=== PATIENT | female | born 1980 | race Caucasian/White ===

== ENCOUNTER 2019-07-31 02:00 | Emergency (ER) | payer OTHER ==
[2019-07-31] MEDS ORDERED: ONDANSETRON HCL INJ/PF 4 MG/2 ML SDV IV ONE (02:57)
[2019-07-31] MEDS ORDERED: DICYCLOMINE HCL INJ 20 MG/2 ML AMPULE IM ONE (02:57)
[2019-07-31] MEDS ORDERED: NORMAL SALINE 1000 ML 1,000 ML IV ONE (02:57)
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
[2019-07-31 04:12] LABS: APPEARANCE,URINE CLEAR; BILIRUBIN,URINE NEGATIVE (NEGATIVE); COLOR,URINE YELLOW; GLUCOSE, URINE NEGATIVE (NEGATIVE); KETONES,URINE NEGATIVE (NEGATIVE); LEUKOCYTE ESTERASE,URINE NEGATIVE (NEGATIVE); NITRITE,URINE NEGATIVE (NEGATIVE); PROTEIN,URINE NEGATIVE (NEGATIVE); URINE SPECIFIC GRAVITY 1.023; UROBILINOGEN,URINE NEGATIVE mg/dL (<2.0)
[2019-07-31 04:13] LABS: ABSOLUTE BASOPHILS # (AUTO) 0.1 10^3/uL (0.0-0.2); ABSOLUTE EOSINOPHILS # (AUTO) 0.1 10^3/uL (0.0-0.6); ABSOLUTE LYMPHOCYTES (AUTO) 1.6 10^3/uL (0.5-4.7); ABSOLUTE MONOCYTES (AUTO) 0.3 10^3/uL (0.1-1.4); ABSOLUTE NEUT (AUTO) 5.6 10^3/uL (1.7-8.2); BASOPHILS % (AUTO) 0.8 % (0-2); EOSINOPHILS % (AUTO) 1.2 % (0-6); HEMATOCRIT 39.7 % (36.0-47.0); HEMOGLOBIN 13.4 g/dL (12.0-15.5); LYMPHOCYTES % (AUTO) 20.5 % (13-45); MEAN CORPUSCULAR HEMOGLOBIN 28.7 pg (27.0-33.4); MEAN CORPUSCULAR HGB CONC 33.6 g/dL (32.0-36.0); MEAN CORPUSCULAR VOLUME 85 fl (80-97); MONOCYTES % (AUTO) 4.3 % (3-13); PLATELET COUNT 164 10^3/uL (150-450); RED BLOOD COUNT 4.65 10^6/uL (3.72-5.28); RED CELL DISTRIBUTION WIDTH 14.5 % (11.5-14.0); SEGMENTED NEUTROPHILS % (AUTO) 73.2 % (42-78); TOTAL CELLS COUNTED % (AUTO) 100 %; WHITE BLOOD COUNT 7.6 10^3/uL (4.0-10.5)
[2019-07-31 04:27] LABS: ALBUMIN 5.1 g/dL (3.5-5.0); ALKALINE PHOSPHATASE 129 U/L (38-126); ANION GAP 13 (5-19); ASPARTATE AMINO TRANSFERASE 22 U/L (14-36); BILIRUBIN,DIRECT 0.3 mg/dL (0.0-0.4); BILIRUBIN,TOTAL 0.4 mg/dL (0.2-1.3); BLOOD UREA NITROGEN 14 mg/dL (7-20); CALCIUM 10.1 mg/dL (8.4-10.2); CARBON DIOXIDE 27 mmol/L (22-30); CHLORIDE 106 mmol/L (98-107); GLUCOSE 126 mg/dL (75-110); POTASSIUM 4.5 mmol/L (3.6-5.0); TOTAL PROTEIN 8.6 g/dL (6.3-8.2)
--- NOTE | 2019-07-31 06:28 | RADIOLOGY REPORT (SQ) ---
CT abdomen and pelvis with contrast on 07/31/2019 5:07 AM CLINICAL INDICATION: Lower abdominal pain, cramping, rectal stricture TECHNIQUE: Multiple axial images are obtained throughout the abdomen and pelvis following the administration of IV and oral contrast. 55 mL of Omnipaque 350 contrast was administered intravenously. This exam was performed according to our departmental dose-optimization program, which includes automated exposure control, adjustment of the mA and/or kV according to patient size and/or use of iterative reconstruction technique. Total DLP is 464.16 mGy*cm. COMPARISON: None FINDINGS: Abdomen: The lung bases are clear. There is hypervascular lesion in the hepatic dome measuring approximately 4.9 x 4.7 cm. This is only visualized on the initial postcontrast imaging and blends in with surrounding tissue on the delayed imaging. This could represent a large hemangioma or possibly a hepatic adenoma. Would recommend nonemergent follow-up liver protocol MRI with contrast to better evaluate. There is tiny atrophic likely nonfunctioning right kidney seen on axial image 25 of series 3. 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 The solid abdominal organs are otherwise unremarkable. There is no abdominal adenopathy. There is no free fluid or free air within the abdomen. Most of the colon is not well distended. The abdominal portion of the GI tract is otherwise unremarkable. Pelvis: Tampon is noted in the vagina. Pelvic organs appear unremarkable by CT. No free fluid is noted in the pelvis. Mild increased stool is noted in the rectum suggesting a mild fecal impaction without other evidence of significant constipation. Pelvic portion of the GI tract including the appendix is otherwise unremarkable. No bony abnormality is noted. IMPRESSION: 1. Essentially solitary left kidney as above. 2. Mild increased stool in the rectum suggesting a mild fecal impaction. 3. Right hepatic dome lesion as above, recommend follow-up liver protocol MRI with and without contrast when feasible.
[2019-07-31 07:25] VITALS: BP 101/58
== END 2019-07-31 07:24 | disposition home or self-care (01) ==
LOC: ER 02:00
DX: K56.41 Fecal impaction (principal); K62.4 Stenosis of anus and rectum; K76.89 Other specified diseases of liver; R11.2 Nausea with vomiting, unspecified; R53.1 Weakness; R19.7 Diarrhea, unspecified; R10.30 Lower abdominal pain, unspecified; R61 Generalized hyperhidrosis; Z88.0 Allergy status to penicillin
CPT/HCPCS: 99284; 96372; 96361; 96374; 36415; 83690; 85025; 81025; 80053; 81001; 74177; J0500; J2405; J7030

== ENCOUNTER 2020-05-26 06:32 | Day surgery (SDC) | payer OTHER ==
[2020-05-26] MEDS ORDERED: PROPOFOL INJ 200 MG/20 ML VIAL IV ONE (07:22)
[2020-05-26] MEDS ORDERED: LIDOCAINE 2% INJ (20 MG/ML) 20 ML MDV ONE (07:53)
[2020-05-26 09:32] VITALS: BP 102/65
--- NOTE | 2020-05-26 10:03 | Operative Report ---
Operative Report DATE OF SURGERY: 05/26/20 Operative Report: The risk, benefits and alternatives of the procedure including the risk of bleeding, perforation requiring surgery have been explained to the patient in detail. Patient is taken back to the endoscopy suite and placed in the left, lateral decubital position. Timeout was called. Propofol medication is administered. Rectal examination is done which did not reveal any masses, tears or fissures. An Olympus videoscope was introduced into the patient's rectum. The scope was then carefully advanced all the way to the cecum. Cecum was identified by the usual anatomical landmarks including the ileocecal valve as well as the appendiceal office. Photodocumentation is obtained. Scope was then sequentially pulled back via the various segments of the colon including the ascending colon, hepatic flexure, transverse colon, splenic flexure, descending colon finding to the rectosigmoid portions of the colon. Retroflexion maneuver is performed. The risks benefits and alternatives of the procedure explained to the patient in detail and informed consent is obtained.A GIF Olympus video scope was inserted into the patient's mouth and hypopharynx ,the esophagus is identified intubated and insufflated, the scope was then advanced through the esophagus stomach and duodenum, retroflexion maneuver is done, the esophagus stomach and first and second portions of the duodenum examined PREOPERATIVE DIAGNOSIS: Change in bowel habits. Gastroesophageal reflux disease POSTOPERATIVE DIAGNOSIS: Normal colonoscopy. No obstruction noted. Random biopsies taken in the terminal ileum. Mild gastritis status post biopsy OPERATION: Colonoscopy with biopsy. EGD with biopsy SURGEON: ESCOBAR ELENA ANESTHESIA: LMAC TISSUE REMOVED OR ALTERED: As noted above. COMPLICATIONS: None. ESTIMATED BLOOD LOSS: None. INTRAOPERATIVE FINDINGS: As noted above. PROCEDURE: Patient tolerated the procedure well. No immediate postprocedure complications are noted. Patient is discharged in good condition. Discharge date 2019. Discharge diet: Regular. Discharge activity: Regular. 2 to 3-week follow-up to discuss findings. Patient is instructed call the office or proceed to the emergency room should there be any further problems or questions. 5-year surveillance colonoscopy due to the family history of familial polyposis syndrome
--- OUTSIDE RECORDS SUMMARY | 2020-05-29 08:53 | XMS REPORT ---
:1980 [facility] [place] [facility] [address] [place] [id number] Care Team Providers Name Role Phone Francoise Monahan Attending Clinician Unavailable Dasia Dotson Attending Clinician Unavailable Allergies, Adverse Reactions, Alerts Allergy Name Allergy Status Severity Reaction(s) Onset Inactive Treat ing Comments Type Date Date Clinician AMOXICILLIN Drug Active Unknown 2020-02 TRIHYDRATE allergy - 00:00:0 0 CODEINE Drug Active Unknown 2020-02 allergy - 00:00:0 0 POTASSIUM Drug Active Unknown 2020-02 CLAVULANATE allergy - 00:00:0 0 Medications This patient has no known medications. Problems This patient has no known problems. Procedures Procedure Date / Time Performed Performing Clinician Devic e OFFICE/OUTPATIENT VISIT NEW 2020-05-16 08:30:00 OFFICE/OUTPATIENT VISIT 2020-03-13 13:00:00 Results Test Description Test Time Test Comments Text Results Atomic Results Result Comments [facility] 2018 CORONAVIRUS JASBIR PANEL\S\ 2020-05-23 09:26:00 Test Item Value Reference Range Comments [facility] CORONAVIRUS 2019 [facility] (test code = SOURCE3) See comment [facility] 2018 NOVEL CORONAVIRUS JASBIR (test code = [id number]) N ot Detected Not Detect Assessments Condition Name Status Diagnosis Date Treating Clinici an Body mass index (BMI) 27.0-27.9, adult Active Melena Active Gastro-esophageal reflux disease without Active esophagitis Family history of colonic polyps Active Constipation, unspecified Active Generalized abdominal pain Active Abn findings on dx imaging of abd regions, Active inc retroperiton Encounter for oth general cnsl and advice on Active contraception Encounters Start End Encounter Admission Attending Care Care Encounter Date/Time Date/Time Type Type Clinicians Facility Department ID 2020-05-16 2020-05-16 Outpatient MILLICENT Monahan [place] 6 [id number] 08:30:00 08:30:00 [facility] [id number] and [id number] Multispecialty [id number] Clini 2020-03-13 2020-03-13 Outpatient Bundle, [facility] [id number] 13:00:00 13:00:00 Dasia Castro [id number] s [id number] and [id number] Mult[facility]ty [facility], Social History This patient has no known social history. Vital Signs This patient has no known vital signs.
== END 2020-05-26 09:25 | disposition home or self-care (01) ==
LOC: END 06:32
PROVIDERS: ATTEND Internal Medicine Gastroenterology
DX: K29.50 Unspecified chronic gastritis without bleeding (principal); K50.00 Crohn's disease of small intestine without complications; K21.9 Gastro-esophageal reflux disease without esophagitis; K59.00 Constipation, unspecified; Z03.818 Encounter for observation for suspected exposure to other biological agents ruled out; Z83.71 Family history of colonic polyps; R93.2 Abnormal findings on diagnostic imaging of liver and biliary tract; Q60.0 Renal agenesis, unilateral
CPT/HCPCS: 43239; 45380; 87635; 88342 ×2; 88305 ×2; 00813; J3490; J2704; C9803; 813

== ENCOUNTER 2020-06-16 00:53 | Emergency (ER) | payer OTHER ==
[2020-06-16 02:07] LABS: APPEARANCE,URINE CLEAR; BILIRUBIN,URINE NEGATIVE (NEGATIVE); COLOR,URINE YELLOW; GLUCOSE, URINE NEGATIVE (NEGATIVE); KETONES,URINE NEGATIVE (NEGATIVE); LEUKOCYTE ESTERASE,URINE NEGATIVE (NEGATIVE); NITRITE,URINE NEGATIVE (NEGATIVE); PROTEIN,URINE NEGATIVE (NEGATIVE); URINE SPECIFIC GRAVITY 1.021; UROBILINOGEN,URINE NEGATIVE mg/dL (<2.0)
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
[2020-06-16] MEDS ORDERED: ONDANSETRON 4 MG TAB.RAPDIS PO ONE (02:17)
[2020-06-16] MEDS ORDERED: DICYCLOMINE HCL 20 MG TABLET PO ONE (02:18)
[2020-06-16 03:40] VITALS: BP 101/58
== END 2020-06-16 03:40 | disposition home or self-care (01) ==
LOC: ER 00:53
DX: K52.1 Toxic gastroenteritis and colitis (principal); T50.995A Adverse effect of other drugs, medicaments and biological substances, initial encounter; K59.09 Other constipation; Z88.0 Allergy status to penicillin; Z91.14 Patient's other noncompliance with medication regimen
CPT/HCPCS: 99283; 81001; J3490; S0119